=== PATIENT | female | born 1970 | race American Indian/Alaskan Native ===

== ENCOUNTER 2019-01-12 13:21 | Emergency (ER) | payer OTHER ==
[2019-01-12 13:30] VITALS: BP 142/81
--- NOTE | 2019-01-12 13:37 | Emergency Department Report ---
Chief Complaint: Skin/Abscess/Foreign Body Stated Complaint: SPIDER BITE Time Seen by Provider: 01/12/19 13:30 - HPI History of Present Illness: pt states she right forearm with rash/blistering for 7 days did not see anything her bite her states it itches has been wrapping with ld bandage has been using benadryl and cortisone 10 was placed on azithromycin has taken for three days by her PCP subjective fever, states she took aspirin 8 AM this morning PMHx of prediabetes "states she can take coated aspirin" - Exam Vital Signs: Vital Signs 01/12/19 13:25 Temperature 98 F Pulse Rate 84 Respiratory 18 Rate Blood Pressure 142/81 O2 Sat by Pulse 96 Oximetry MSE screening note: Focused history and physical exam performed.
--- NOTE | 2019-01-12 13:38 | Emergency Department Report ---
- General Chief complaint: Skin/Abscess/Foreign Body Stated complaint: SPIDER BITE Time Seen by Provider: 01/12/19 13:30 Source: patient Mode of arrival: Ambulatory Limitations: No Limitations - History of Present Illness Initial comments: pt is a 48 yo female who presents to the ED with c/o right forearm with rash/blistering for 7 days. she did not see anything her bite her. she states it itches. The patient has been wrapping with ld bandage and has been using benadryl and cortisone 10. she was placed on azithromycin has taken for three days by her PCP . states subjective fever, states she took aspirin 8 AM this morning. states she "can take coated aspirin without having an allergy." PMHx of prediabetes - Related Data Previous Rx's Medication Instructions Recorded Last Taken Type Hydrocortisone [Hydrocortisone 1 applicatio TP BID #1 oint...g. 01/12/19 Unknown Rx 2.5% OINT] cephALEXin [Keflex] 500 mg PO QID 7 Days #28 cap 01/12/19 Unknown Rx diphenhydrAMINE [Benadryl CAP] 25 mg PO Q6HR PRN #20 capsule 01/12/19 Unknown Rx Allergies Allergy/AdvReac Type Severity Reaction Status Date / Time aspirin Allergy Hives Verified 01/12/19 13:25 ibuprofen Allergy Hives Verified 01/12/19 13:25 Sulfa (Sulfonamide Allergy Hives Verified 01/12/19 13:25 Antibiotics) Abscess Boil HPI - HPI Chief Complaint: Skin/Abscess/Foreign Body Stated Complaint: SPIDER BITE Time Seen by Provider: 01/12/19 13:30 Home Medications: Previous Rx's Medication Instructions Recorded Last Taken Type Hydrocortisone [Hydrocortisone 1 applicatio TP BID #1 oint...g. 01/12/19 Unknown Rx 2.5% OINT] cephALEXin [Keflex] 500 mg PO QID 7 Days #28 cap 01/12/19 Unknown Rx diphenhydrAMINE [Benadryl CAP] 25 mg PO Q6HR PRN #20 capsule 01/12/19 Unknown Rx Allergies/Adverse Reactions: Allergies Allergy/AdvReac Type Severity Reaction Status Date / Time aspirin Allergy Hives Verified 01/12/19 13:25 ibuprofen Allergy Hives Verified 01/12/19 13:25 Sulfa (Sulfonamide Allergy Hives Verified 01/12/19 13:25 Antibiotics) ED Review of Systems ROS: Stated complaint: SPIDER BITE Other details as noted in HPI Comment: All other systems reviewed and negative ED Past Medical Hx - Past Medical History Previous Medical History?: Yes Hx Diabetes: Yes (pre) - Surgical History Past Surgical History?: Yes Additional Surgical History: Hysterectomy, x 2, Abscess on stomach - Social History Smoking Status: Never Smoker Substance Use Type: Alcohol - Medications Home Medications: Home Medications Medication Instructions Recorded Confirmed Last Taken Type Hydrocortisone [Hydrocortisone 1 applicatio TP BID #1 oint...g. 01/12/19 Unknown Rx 2.5% OINT] cephALEXin [Keflex] 500 mg PO QID 7 Days #28 cap 01/12/19 Unknown Rx diphenhydrAMINE [Benadryl CAP] 25 mg PO Q6HR PRN #20 capsule 01/12/19 Unknown Rx ED Physical Exam - General Limitations: No Limitations General appearance: alert, in no apparent distress - Head Head exam: Present: atraumatic, normocephalic - Eye Eye exam: Present: normal appearance, PERRL - ENT ENT exam: Present: mucous membranes moist - Respiratory Respiratory exam: Absent: respiratory distress - Neurological Exam Neurological exam: Present: alert, oriented X3 - Psychiatric Psychiatric exam: Present: normal affect, normal mood - Skin Skin exam: Present: warm, other (small fluid filled vesicles present to the right forearm and bilateral hands, no erythema, no active drainage, small scabbed papuple to the right forearm where pt has been scratching, no purulent drainage, no eschar, no skin denuding) ED Course Vital Signs 01/12/19 13:25 Temperature 98 F Pulse Rate 84 Respiratory 18 Rate Blood Pressure 142/81 O2 Sat by Pulse 96 Oximetry ED Medical Decision Making - Medical Decision Making pt is a 48 yo female who presents to the ED with c/o right forearm with rash/blistering for 7 days. she did not see anything her bite her. she states it itches. The patient has been wrapping with ld bandage and has been using benadryl and cortisone 10. she was placed on azithromycin has taken for three days by her PCP . states subjective fever, states she took aspirin 8 AM this morning. states she "can take coated aspirin without having an allergy." PMHx of prediabetes. on exam: small fluid filled vesicles present to the right forearm and bilateral hands, no erythema, no active drainage, small scabbed papuple to the right forearm where pt has been scratching, no purulent drainage, no eschar, no skin denuding. appears she has been wrapping the ld bandage too tight. advised to not wear the ld bandage. pt given benadryl, keflex, and hydrocortisone cream. advised to please use medication as prescribed. stop taking azithromycin and begin taking keflex. continue to use bendaryl for itching. may also use calamine lotion. follow up with your primary care doctor in the next 3 days. return to the emergency room for any new or worsening symptoms. - Differential Diagnosis contact derm, irritant derm, allergic rxn Critical care attestation.: If time is entered above; I have spent that time in minutes in the direct care of this critically ill patient, excluding procedure time. ED Disposition Clinical Impression: Contact dermatitis Qualifiers: Contact dermatitis type: unspecified Contact dermatitis trigger: unspecified trigger Qualified Code(s): L25.9 - Unspecified contact dermatitis, unspecified cause Disposition: DC-01 TO HOME OR SELFCARE Is pt being admited?: No Does the pt Need Aspirin: No Condition: Stable Instructions: Contact Dermatitis (ED) Additional Instructions: please use medication as prescribed. stop taking azithromycin and begin taking keflex. continue to use bendaryl for itching. may also use calamine lotion. follow up with your primary care doctor in the next 3 days. return to the emergency room for any new or worsening symptoms. Prescriptions: diphenhydrAMINE [Benadryl CAP] 25 mg PO Q6HR PRN #20 capsule PRN Reason: Itching Hydrocortisone [Hydrocortisone 2.5% OINT] 1 applicatio TP BID #1 oint...g. cephALEXin [Keflex] 500 mg PO QID 7 Days #28 cap Referrals: [facility] [Provider Group] - 2-3 Days Time of Disposition: 13:53 Print Language: MALAWIAN
== END 2019-01-12 14:01 | disposition home or self-care (01) ==
LOC: ED 13:21
DX: L25.9 Unspecified contact dermatitis, unspecified cause (principal); E11.9 Type 2 diabetes mellitus without complications; Z90.710 Acquired absence of both cervix and uterus; Z88.6 Allergy status to analgesic agent; Z88.2 Allergy status to sulfonamides